=== PATIENT | female | born 1960 | race Caucasian/White ===

== ENCOUNTER 2016-08-23 08:28 | Inpatient (IN) | payer OTHER ==
[2016-08-23] VITALS (35 sets, daily range): BP systolic 111–179; BP diastolic 64–98; PULSE 72–102; RESP 16–19; Ht 149.9 cm; Wt 67.5 kg
[~2016-08-23] VITALS: Ht 149.9 cm; Wt 67.5 kg
[~2016-08-23 08:28] MED LIST: HYDR-906 PO
[2016-08-23] MEDS ORDERED: NEOSTIGMINE 3 MG/3 ML SYRINGE ONE (09:30)
[2016-08-23] MEDS ORDERED: FENTAnyl 50 MCG/ML VIAL IV PRN ×2 (09:30)
[2016-08-23] MEDS ORDERED: FENTAnyl 50 MCG/ML VIAL ONE (09:30)
[2016-08-23] MEDS ORDERED: MEPERIDINE 25 MG INJ IV PRN (09:30)
[2016-08-23] MEDS ORDERED: ATROPINE 1 MG/10 ML SYRINGE IV PRN (09:30)
[2016-08-23] MEDS ORDERED: ROCURONIUM 50 MG INJ ONE (09:30)
[2016-08-23] MEDS ORDERED: LABETALOL HCL 20MG INJ IV PRN (09:30)
[2016-08-23] MEDS ORDERED: LIDOCAINE 2% (SDV) 5 ML INJ ONE (09:30)
[2016-08-23] MEDS ORDERED: hydrALAzine 20 MG INJ IV PRN (09:30)
[2016-08-23] MEDS ORDERED: EPHEDrine SULFATE 50 MG/5 ML SYG IV PRN (09:30)
[2016-08-23] MEDS ORDERED: HYDROmorphONE (0.2 MG/ML) 10ML SYG IV PRN ×3 (09:30)
[2016-08-23] MEDS ORDERED: ONDANSETRON 4 MG INJ IV PRN ×2 (09:30→14:30)
[2016-08-23] MEDS ORDERED: OXYCODONE/ACETAMINOPHEN (5/325) TAB PO PRN ×2 (09:30)
[2016-08-23] MEDS ORDERED: morphine (1 MG/ML) 10ML SYRINGE IV PRN ×3 (09:30)
[2016-08-23] MEDS ORDERED: MIDAZOLAM 1 MG/ML 2 ML INJ IV PRN (09:30)
[2016-08-23] MEDS ORDERED: PROPOFOL 20 ML ONE (09:30)
[2016-08-23] MEDS ORDERED: DIPHENHYDRAMINE 50 MG INJ IV PRN (09:30)
[2016-08-23] MEDS ORDERED: MIDAZOLAM 1 MG/ML 2 ML INJ ONE (09:30)
[2016-08-23] MEDS ORDERED: GLYCOPYRROLATE 0.4 MG INJ ONE (09:30)
[2016-08-23] MEDS ORDERED: LIDOCAINE 2%/EPI 30 ML INJ ONE (09:31)
[2016-08-23] MEDS ORDERED: ROPIVACAINE 0.5 % 30 ML VIAL ONE (09:31)
[2016-08-23] MEDS ORDERED: metroNIDAZOLE 500 MG/NS (PMX) 100 ML IVPB ONE (09:33)
[2016-08-23] MEDS ORDERED: ALBUMIN HUMAN 25% 100 ML ONE (09:33)
[2016-08-23] MEDS ORDERED: VANCOMYCIN 1 GM (PMX) 250 ML ONE (11:17)
[2016-08-23] MEDS ORDERED: POLYMYXIN/BACITRACIN 1L IRRIG IRR ONE (11:48)
[2016-08-23] MEDS ORDERED: ONDANSETRON 4 MG INJ ONE (12:02)
[2016-08-23] MEDS ORDERED: DEXAMETHASONE 4 MG/ML 1 ML INJ ONE (12:02)
[2016-08-23] MEDS ORDERED: hydrALAzine 20 MG INJ ONE (12:53)
[2016-08-23] MEDS ORDERED: POLYMYXIN/BACITRACIN 1L IRRIG ONE (13:45)
[2016-08-23] MEDS ORDERED: NEOMYC/POLYMYX/BACIT 30 GM OINT ONE (13:45)
--- NOTE | 2016-08-23 14:15 | RADRPT ---
PROCEDURE: Intraoperative imaging of the left ankle with fluoroscopy. CLINICAL INDICATION: Left ankle pain. Intraoperative. TECHNIQUE: Four images of the left ankle were obtained in the operating room with an image intensi fier. No radiologist was in attendance. 1.5 minutes of fluoroscopy time was used. COMPARISON: Left ankle radiographs dated 07/30/2016. FINDINGS: Images demonstrate open reduction and internal fixation of the distal fibula with a lateral plate an d multiple screws. 2 screws are also noted transfixing the distal tibia and a single screw is noted transfixing the medial malleolus. IMPRESSION: 1. Intraoperative imaging of the left ankle. RPTAT: QQ .Willian Carney MD, MD Date Time Electronically viewed and signed by .Willian Carney MD, on 08/23/2016 14:15 .R/
[2016-08-23] MEDS ORDERED: morphine 1 MG/ML 30 ML (PCA) IV SCH (14:30)
[2016-08-23] MEDS ORDERED: DIPHENHYDRAMINE 25 MG CAP PO PRN (14:30)
[2016-08-23] MEDS ORDERED: morphine 10 MG INJ IV PRN (14:30)
--- NOTE | 2016-08-23 14:38 | OPPN ---
Date/Time of Note Date/Time of Note DATE: 08/23/16 TIME: 14:31 Operative/Procedure Note Pre-Operative Diagnosis 1. Left ankle trimalleolar ankle fracture 2. Diabetic skin wound over the anterior and lateral ankle measuring <25cm squared Post-Operative Diagnosis 1. Left ankle trimalleolar ankle fracture 2. Diabetic skin wound over the anterior and lateral ankle measuring <25cm squared Procedure 1. Left ankle trimalleolar ankle fracture ORIF (CPT - 33909) 2. Application of skin substitute graft to the left Diabetic skin wound over the left anterior and lateral ankle measuring 25cm squared total with Jes Allowrap DS Amniotic Membrane (CPT - 47254) 3. Application of short leg splint (CPT - 40421) 4. Use of fluoroscopy Surgeon: TARAH SWARTZ MD Manager Military: CORY BRAVO MD Anesthesiologist: BHAVYA KERNS MD Implants/Grafts [employer] distal fibular locking plate Jes 4.0 partially threaded cancellous screws with washer x 2 AO Synthes 2.0 full threaded screw Estimated blood loss: 0 - 10 ml's Drains: Not applicable Specimens: Not Applicable Complications: None Anesthesia type: nerve block TARAH SWARTZ MD Aug 23, 2016 14:38
[2016-08-23 15:54] LABS: THYROID STIMULATING HORMONE 1.44 MIU/L (0.465-4.680)
[2016-08-23] MEDS ORDERED: GLUCAGON 1 MG INJ IM PRN (17:30)
[2016-08-23] MEDS ORDERED: GLUCOSE GEL 15 GRAM TUBE BUCCAL PRN (17:30)
[2016-08-23] MEDS ORDERED: GLUCOSE GEL 15 GRAM TUBE PO PRN ×2 (17:30)
[2016-08-23] MEDS ORDERED: DEXTROSE 50% 50 ML SYRINGE IV PRN ×2 (17:30)
[2016-08-23] MEDS: INSULIN ASPART [NOVOLOG] 3 ML PEN SC SCH ×2 (17:55→20:39)
[2016-08-23] MEDS: PANTOPRAZOLE (EC) 40 MG TAB PO SCH (18:00)
--- NOTE | 2016-08-23 19:14 | CONS ---
DATE OF ADMISSION: 08/23/2016 DATE OF CONSULTATION: 08/23/2016 REQUESTING CONSULT: Tarah Swartz MD REASON FOR CONSULTATION: Medical management status post left ankle surgery. HISTORY OF PRESENT ILLNESS: This is a 55-year-old female with past medical history of left ankle tr imalleolar ankle fracture, prehypertension, prediabetes mellitus, degenerative disk disease, low rocio k pain, left bundle branch block who on 07/30/2016 slipped on ice and fractured her left ankle and w as seen and evaluated by orthopedic surgeon as outpatient. The patient today was admitted for elect kaylie left ankle trimalleolar ankle fracture ORIF. After discussing the risks and benefits of the madeleine janet and signing consent, the patient was taken to OR today and had a left ankle trimalleolar ankle fracture ORIF with application of ____ graft to the left diabetic skin wound over the left anterior and lateral ankle measuring 25 cm2 total of Jes, and application of short leg cast with nerve bl ock. The patient tolerated the procedure and was taken to recovery room, which medical team was con sulted for further evaluation and medical treatment. Postoperatively, patient was found to have tem perature 98, pulse 102, respiration rate 17, blood pressure 127/72, oxygen 98% on 2 liters via nasal cannula. The patient, at this time, is accompanied by her son and her . She denies any [address] [facility] pain, shortness of breath, nausea, vomiting, diarrhea. No headache, dizziness, lightheadedness. No change in visual acuity, diplopia, photophobia. No abdominal pain. Denies having any pain in h er extremities. The patient is on POLITICAL SCIENCE CHAIR pump. PAST MEDICAL AND SURGICAL HISTORY: As above per HPI. MEDICATIONS: According to the patient's son, patient is on OxyContin, [place], although on the list, patient is also on Maxzide 37.5/25 half a tab p.o. daily, although according to the patient's son, ismael ac has not been taking this medication. ALLERGIES: PENICILLIN, DICLOFENAC. SOCIAL HISTORY: Negative x3 for smoking, alcohol, illicit drugs. The patient lives at home with he r family. FAMILY HISTORY: Noncontributory. REVIEW OF SYSTEMS: As above per HPI, otherwise 12 review of systems was found to be negative. PHYSICAL EXAMINATION: VITAL SIGNS: Temperature at this time 98.0, pulse 96, respirations 17, blood pressure 135/74, oxyge n saturation 99% on 2 liters venous via nasal cannula. GENERAL APPEARANCE: The patient is lying in bed comfortably without any acute distress. She is macie ke, alert, able to follow simple commands. EYES AND EARS, NOSE, THROAT: Conjunctivae and lids are normal. Pupils are normal. Extraocular mov ements normal. Hearing grossly normal. Lips are normal. Oral mucosa is dry. NECK: Supple. Trachea is midline. No lymphadenopathy. RESPIRATORY: Effort is normal. Clear to auscultation bilaterally. CARDIOVASCULAR: Normal S1, S2. Regular rhythm and rate. No murmur, no bruits, no edema. Peripher al pulses, radial pulses palpable. Cap refill is normal. CHEST: Normal expansion of thorax during inspiration. GASTROINTESTINAL: Abdomen is soft, nontender, nondistended. Bowel sounds present. No guarding, no rebound. GENITOURINARY: Deferred. MUSCULOSKELETAL: Upper extremity within normal limits. Right lower extremity within normal limits. Left lower extremity, status post left ankle ORIF in cast. No cyanosis in the digits of the left foot. NEUROLOGIC: She is awake, alert. LABORATORY WORK AND IMAGING: TSH 1.440, free T4 of 2.02. Thyroxine 13.7. On 08/10/2016, WBC 8.4, hemoglobin 13.4, hematocrit 39.2, platelets 406. Glucose 100, BUN 14, creatinine 0.69, GFR ____, so dium 139, potassium 4.2, chloride 100, bicarbonate 25, calcium 8.9, albumin 3.9. Urinalysis negativ e. INR 1.0, PTT 26. ASSESSMENT AND PLAN: 1. Left ankle trimalleolar ankle fracture. The patient is status post left ankle trimalleolar ankl e fracture open reduction internal fixation. Orthopedic surgeon, Dr. Swartz. Continue post-surgica l care. Continue with POLITICAL SCIENCE CHAIR for the next 24 hours and then we will transition to oral pain medication . Physical therapy as per his recommendation. 2. Diabetic skin wound over the anterior and lateral ankle measuring less than 25 cm, status post a pplication of ____ graft to the left diabetic skin wound over the left anterior and lateral ankle me asuring 25 cm. Continue wound care. 3. Prediabetic. The patient has been placed on insulin sliding scale. Follow up hemoglobin A1c. 4. Prehypertension. The patient has been started on metoprolol. Continue to monitor blood pressur e and treat accordingly. 5. For gastrointestinal prophylaxis, we will place the patient on Protonix. 6. Deep venous thrombosis prophylaxis. We will follow up orthopedic surgeon recommendation. Total amount of time was spent for evaluation of patient and consultation note 40 minutes. We will continue to monitor patient closely. Further recommendations, management, and treatment as per clin ical course. Dictated By: CARA ANDRE MD PN/NTS Conf#: [id number] DID#: [id number] CC: TARAH SWARTZ MD;*EndCC*
[2016-08-23] MEDS ORDERED: VANCOMYCIN IV PER PHARMACY XX SCH ×2 (19:30→21:00)
[2016-08-23] MEDS: VANCOMYCIN 1 GM in NS 250 ML IVPB SCH (20:38)
[2016-08-23] MEDS: METOPROLOL 25 MG TAB PO SCH (20:38)
[2016-08-24] MEDS ORDERED: ACCUCHECK XX SCH (02:00)
[2016-08-24 05:24] LABS: BASOPHIL # 0.1 10^3/ul (0.0-0.1); BASOPHILS % 0.6 % (0.0-2.0); HEMATOCRIT 40.2 % (37.0-47.0); HEMOGLOBIN 13.7 g/dl (12.0-16.0); LYMPHOCYTES # 0.8 10^3/ul (0.8-2.9); LYMPHOCYTES % 6.5 % (15.0-51.0); MEAN CORPUSCULAR HEMOGLOBIN 31.2 pg (29.0-33.0); MEAN CORPUSCULAR HGB CONC 34.1 g/dl (32.0-37.0); MEAN CORPUSCULAR VOLUME 91.4 fl (82.0-101.0); MEAN PLATELET VOLUME 8.7 fl (7.4-10.4); MONOCYTE # 0.5 10^3/ul (0.3-0.9); MONOCYTES % 4.1 % (0.0-11.0); NEUTROPHIL # 11.6 10^3/ul (1.6-7.5); NEUTROPHILS % 88.8 % (39.0-77.0); PLATELET COUNT 326 10^3/UL (140-440); RED BLOOD COUNT 4.39 10^6/ul (4.20-5.40); UNCORRECTED WBC 13.1 10^3/ul (4.8-10.8); WHITE BLOOD COUNT 13.1 10^3/ul (4.8-10.8)
[2016-08-24 05:38] LABS: CONDITION 1
[2016-08-24 05:45] LABS: CHOL/HDL RATIO 3.5 RATIO
[2016-08-24 05:48] LABS: POTASSIUM 3.5 mmol/L (3.5-5.1)
[2016-08-24 05:50] LABS: CREATININE 0.67 mg/dl (0.44-1.00)
[2016-08-24] MEDS: PANTOPRAZOLE (EC) 40 MG TAB PO SCH (06:08)
--- NOTE | 2016-08-24 07:41 | DS ---
Date/Time of Note Date/Time of Note DATE: 08/24/16 TIME: 07:41 Discharge Summary Admission/Discharge Info Admit Date/Time Aug 23, 2016 at 08:28 Discharge Date/Time 08/24/16 Final Diagnosis Left ankle trimalleolar ankle fracture left Diabetic skin wound over the left anterior and lateral ankle measuring 25cm squared total Patient Condition: Good Consults medicine Procedures 1. Left ankle trimalleolar ankle fracture ORIF (CPT - 91106) 2. Application of skin substitute graft to the left Diabetic skin wound over the left anterior and lateral ankle measuring 25cm squared total with Jes Allowrap DS Amniotic Membrane (CPT - 96142) 3. Application of short leg splint (CPT - 34511) 4. Use of fluoroscopy Hospital Course Patient had pain well controlled and was NVI on discharge day. Up with PT Home Meds Discontinued Scripts Hydrocodone/Acetaminophen ([place] 5-325 Tablet) 1 Each Tablet, 1 TAB PO Q6H Y for PAIN, #10 TAB Prov:SHANNON MEDRANO NP 07/30/16 Follow-up Plan with Dr. Swartz in 1 week Pending Labs Laboratory Tests Test 08/23/16 15:00 08/23/16 18:54 08/23/16 20:37 08/24/16 04:20 Free Thyroxine 2.02ng/dl (0.64-1.79) Thyroid Stimulating Hormone (TSH) 1.440MIU/L (0.465-4.680) Thyroxine (T4) 13.7ug/dl (5.5-11.0) Bedside Glucose 139mg/dL (70-220) 167mg/dL (70-220) Anion Gap 17 (8-16) Basophils # 0.110^3/ul (0.0-0.1) Basophils % 0.6% (0.0-2.0) Blood Urea Nitrogen 15mg/dl (7-20) Calcium Level 9.0mg/dl (8.4-10.2) Carbon Dioxide Level 23mmol/L (21-31) Chloride Level 106mmol/L (97-110) Cholesterol Level 162mg/dl (100-200) Cholesterol/HDL Ratio 3.5RATIO Creatinine 0.67mg/dl (0.44-1.00) Eosinophils # 0.010^3/ul (0.0-0.5) Eosinophils % 0.0% (0.0-7.0) Glucose Level 133mg/dl (70-220) HDL Cholesterol 46mg/dl (37-92) Hematocrit 40.2% (37.0-47.0) Hemoglobin 13.7g/dl (12.0-16.0) Hemoglobin A1c 5.3% (0-5.9) LDL Cholesterol, Calculated 104mg/dl Lymphocytes # 0.810^3/ul (0.8-2.9) Lymphocytes % 6.5% (15.0-51.0) Mean Corpuscular Hemoglobin 31.2pg (29.0-33.0) Mean Corpuscular Hemoglobin Concent 34.1g/dl (32.0-37.0) Mean Corpuscular Volume 91.4fl (82.0-101.0) Mean Platelet Volume 8.7fl (7.4-10.4) Monocytes # 0.510^3/ul (0.3-0.9) Monocytes % 4.1% (0.0-11.0) Neutrophils # 11.610^3/ul (1.6-7.5) Neutrophils % 88.8% (39.0-77.0) Nucleated Red Blood Cells # 0.010^3/ul (0.0-0.0) Nucleated Red Blood Cells % 0.0/100WBC (0.0-0.0) Platelet Count 22685^3/UL (140-440) Potassium Level 3.5mmol/L (3.5-5.1) Red Blood Count 4.3910^6/ul (4.20-5.40) Red Cell Distribution Width 13.0% (11.5-14.5) Sodium Level 142mmol/L (135-144) Triglycerides Level 61mg/dl (0-149) White Blood Count 13.110^3/ul (4.8-10.8) TARAH SWARTZ MD Aug 24, 2016 07:41
--- NOTE | 2016-08-24 07:41 | PN ---
Date/Time of Note Date/Time of Note DATE: 08/24/16 TIME: 07:41 Assessment/Plan Lines/Catheters IV Catheter Type (from Nrsg): Peripheral IV Delcid in Place (from Nrsg): No Assessment/Plan Assessment/Plan POD#1 s/p 1. Left ankle trimalleolar ankle fracture ORIF (CPT - 80705) 2. Application of skin substitute graft to the left Diabetic skin wound over the left anterior and lateral ankle measuring 25cm squared total with [place] Allowrap DS Amniotic Membrane (CPT - 62219) - NWB to the LLE - Appreciate Primary med recs - xarelto, scds, teds - po pain meds - dc home today E Teresa BETANCOURT Subjective 24 Hr Interval Summary Doing well. Pain is well controlled. No f/c/n/v Constitutional: improved, no complaints Feeding: advancing diet Pain Control: well controlled Exam/Review of Systems Vital Signs Vitals Vital Signs Date Time Temp Pulse Resp B/P Pulse Ox O2 Delivery O2 Flow Rate FiO2 08/24/16 08:38 16 08/24/16 08:22 97.8 80 133/72 97 08/23/16 21:05 Nasal Cannula 2.0 Intake and Output 08/23/16 08/23/16 08/24/16 15:00 23:00 07:00 Intake Total 1300 ml 950 ml Output Total 50 ml 1100 ml Balance 1250 ml -150 ml Exam Constitutional: alert, oriented, well developed Musculoskeletal: other (LLE/ toes wiggle, silt exposed toes, cr brisk) Results Result Diagram: 08/24/16 0420 08/24/16419 TARAH SWARTZ MD Aug 24, 2016 07:41
[2016-08-24] MEDS: INSULIN ASPART [NOVOLOG] 3 ML PEN SC SCH ×2 (07:50→11:40)
--- NOTE | 2016-08-24 08:00 | PDOCDIS ---
Discharge Instructions CONDITION Patient Condition: Good HOME CARE INSTRUCTIONS: Diet Instructions: Regular ACTIVITY: Activity Restrictions: Avoid heavy lifting Do not Drive No Weight Bearing (to operative extremity) TARAH SWARTZ MD Aug 24, 2016 08:00
[2016-08-24] MEDS ORDERED: RIVA10TA PO (08:01)
[2016-08-24 08:22] VITALS: BP 133/72; RESP 20
[2016-08-24] MEDS: VANCOMYCIN 1 GM in NS 250 ML IVPB SCH (08:35)
[2016-08-24] MEDS: METOPROLOL 25 MG TAB PO SCH (08:36)
[2016-08-24] MEDS: OXYCODONE/ACETAMINOPHEN (5/325) TAB PO PRN ×2 (08:36→15:49)
[2016-08-24] MEDS ORDERED: TRIAMTERENE/HCTZ (37.5-25) CAP PO SCH (09:00)
[2016-08-24] MEDS ORDERED: PANT40TA4 PO (11:05)
--- NOTE | 2016-08-24 11:26 | PN ---
Date/Time of Note Date/Time of Note DATE: 08/24/16 TIME: 11:17 Assessment/Plan VTE Prophylaxis VTE Prophylaxis Intervention: other Lines/Catheters IV Catheter Type (from Nrs): Peripheral IV Urinary Cath still in place: No Assessment/Plan Chief Complaint/Hosp Course ASSESSMENT AND PLAN: 1. Left ankle trimalleolar ankle fracture. status post left ankle trimalleolar ankle fracture open reduction internal fixation. Orthopedic surgeon, Dr. Moore. Physical therapy eval and treat. Continue pain medication , Xarelto 2. Diabetic skin wound over the anterior and lateral ankle measuring less than 25 cm, status post application of graft to the left diabetic skin wound over the left anterior and lateral ankle measuring 25 cm. Continue wound care. 3. Prediabetic. Encourage low-carb diet 4. Essential hypertension. The patient has been started on metoprolol. 5. For gastrointestinal prophylaxis, discharged on omeprazole Patient is medically stable for discharge with a close follow-up with orthopedic surgeon as outpatient Problems: Subjective 24 Hr Interval Summary Free Text/Dictation Patient denies any chest pain or shortness of breath Denies of any calf pain Tolerating oral intake Minimal pain Exam/Review of Systems Vital Signs Vitals Vital Signs Date Time Temp Pulse Resp B/P Pulse Ox O2 Delivery O2 Flow Rate FiO2 08/24/16 08:38 16 08/24/16 08:22 97.8 80 133/72 97 08/23/16 21:05 Nasal Cannula 2.0 Intake and Output 08/23/16 08/23/16 08/24/16 15:00 23:00 07:00 Intake Total 1300 ml 950 ml Output Total 50 ml 1100 ml Balance 1250 ml -150 ml Exam General: The patient is well-developed, Not in acute distress. HEENT: Atraumatic, normocephalic. The pupils are equal and round . Neck: Supple with full range of motion. Chest: Normal expansion of the thorax during inspiration Lungs: Clear to auscultation bilaterally Heart: Normal S1-S2, Regular rhythm and rate. Abdomen: Soft , nontender, nondistended , bowel sounds are present. Extremities: Normal to inspection, no edema no cyanosis, left lower extremity/ ankle in cast Neurologic: Normal mental status,The patient is awake, alert and oriented . Results Result Diagram: 08/24/1641908/24/16419 Results 24 hrs Laboratory Tests Test 08/23/16 15:00 08/23/16 18:54 08/23/16 20:37 08/24/16 04:20 Free Thyroxine 2.02 H Thyroid Stimulating Hormone (TSH) 1.440 Thyroxine (T4) 13.7 H Bedside Glucose 139 167 Anion Gap 17 H Basophils # 0.1 Basophils % 0.6 Blood Urea Nitrogen 15 Calcium Level 9.0 Carbon Dioxide Level 23 Chloride Level 106 Cholesterol Level 162 Cholesterol/HDL Ratio 3.5 Creatinine 0.67 Eosinophils # 0.0 Eosinophils % 0.0 Glucose Level 133 HDL Cholesterol 46 Hematocrit 40.2 Hemoglobin 13.7 Hemoglobin A1c 5.3 LDL Cholesterol, Calculated 104 Lymphocytes # 0.8 Lymphocytes % 6.5 L Mean Corpuscular Hemoglobin 31.2 Mean Corpuscular Hemoglobin Concent 34.1 Mean Corpuscular Volume 91.4 Mean Platelet Volume 8.7 Monocytes # 0.5 Monocytes % 4.1 Neutrophils # 11.6 H Neutrophils % 88.8 H Nucleated Red Blood Cells # 0.0 Nucleated Red Blood Cells % 0.0 Platelet Count 326 Potassium Level 3.5 Red Blood Count 4.39 Red Cell Distribution Width 13.0 Sodium Level 142 Triglycerides Level 61 White Blood Count 13.1 H Test 08/24/16 08:34 Bedside Glucose 134 Medications Medications Current Medications Oxycodone/ Acetaminophen (Percocet (5/ 325)) 2 tab Q4H PRN PO PAIN Last administered on 08/24/16t 08:36; Admin Dose 2 TAB; Start 08/23/16 at 14:30 Morphine Sulfate (morphine) 5 mg Q4H PRN IV PAIN LEVEL 7-10; Start 08/23/16 at 14:30 Ondansetron HCl (Zofran Inj) 4 mg Q4H PRN IV NAUSEA AND/OR VOMITING; Start at 14:30 Diphenhydramine HCl (Benadryl) 25 mg Q4H PRN PO ITCHING; Start 08/23/16 at 14: 30 Diagnostic Test (Pha) (Accucheck) 1 ea 02 XX ; Start 08/24/16 at 02:00 Miscellaneous Information 1 ea NOTE XX ; Start 08/23/16 at 17:30 Glucose (Glutose) 15 gm Q15M PRN PO DECREASED GLUCOSE; Start 08/23/16 at 17:30 Glucose (Glutose) 22.5 gm Q15M PRN PO DECREASED GLUCOSE; Start 08/23/16 at 17: 30 Dextrose (D50w Syringe) 25 ml Q15M PRN IV DECREASED GLUCOSE; Start 08/23/16 at 17:30 Dextrose (D50w Syringe) 50 ml Q15M PRN IV DECREASED GLUCOSE; Start 08/23/16 at 17:30 Glucagon (Glucagen) 1 mg Q15M PRN IM DECREASED GLUCOSE; Start 08/23/16 at 17:30 Glucose (Glutose) 15 gm Q15M PRN BUCCAL DECREASED GLUCOSE; Start 08/23/16 at 17 :30 Metoprolol Tartrate (Lopressor) 25 mg BID PO Last administered on 08/24/16 08: 36; Admin Dose 25 MG; Start 08/23/16 at 18:00 Pantoprazole (Protonix Tab) 40 mg DAILY@06 PO Last administered on 08/24/16 06 :08; Admin Dose 40 MG; Start 08/23/16 at 18:00 Vancomycin HCl (Vanco Iv Per Pharmacy) PER PHARMACY DOSING NOTE XX ; Start 08/23 at 19:30 CARA ANDRE MD Aug 24, 2016 11:26
--- NOTE | 2016-08-24 14:26 | OPR ---
DATE OF OPERATION: 08/23/2016 PREOPERATIVE DIAGNOSIS: 1. Left ankle trimalleolar ankle fracture. 2. Diabetic skin wound over the anterior and lateral ankle measuring less than 25 cm squared. POSTOPERATIVE DIAGNOSES 1. Left ankle trimalleolar ankle fracture. 2. Diabetic skin wound over the anterior and lateral ankle measuring less than 25 cm squared PROCEDURE: 1. Left ankle trimalleolar ankle fracture open reduction internal fixation. CPT code 43899. 2. Application of skin substitute graft to the left diabetic skin wound over left anterior and lateral ankle measuring less than 25cm squared total with [place] AlloWrap DS amniotic membrane (CPT code - 97439). 3. Application of short leg splint, CPT code 36866. 4. Use of fluoroscopy. SURGEON: Tarah Moore MD TOXICOLOGIST: Andrzej Mckeon MD ANESTHESIOLOGIST: Ivan Lafleur MD IMPLANTS: 1. Jes distal fibular locking plate. 2. Jes 4.0 partially-threaded cancellous screws with washers x2. 3. AO Synthes 2.0 fully-threaded screw. ESTIMATED BLOOD LOSS: Minimal. DRAINS: None. SPECIMENS: None. COMPLICATIONS: None. TOURNIQUET TIME: 110 minutes at 250 mmHg. INDICATIONS: The patient sustained a trimalleolar ankle fracture approximately 3 weeks prior to surgery and we waited for her swelling to come down prior to surgery. The patient was preoperatively cleared by her primary doctor and indicated for surgery after review of CT and x-rays. RISK NOTE: The patient was explained the risks and benefits of the surgery in the patient's [place] language including, but not limited to infection, bleeding , loss of limb, loss of life, need for future surgery, risk of infection, risk of injury to blood vessels, nerves, ligaments or tendons. The patient acknowledged these risks, by signing the surgical consent form. PROCEDURE NOTE: The patient had the correct operative extremity marked in the preoperative holding area. The patient was then brought back in the operative theater, given preoperative antibiotics and preoperative regional block anesthesia. The patient was then prepped and draped in a normal sterile fashion. Timeout was taken and all parties in the room agreed it was the correct extremity, correct patient, correct procedure. Incision was initially made over the distal fibula and the distal fibula was meticulously reduced and repaired initially with a lag screw obtaining interfragmentary compression followed by a [place] distal fibular plate placed over the fracture. Length, alignment and rotation were then shown to be well achieved on both AP, lateral and oblique x-ray fluoroscopy. Once this was achieved, attention was then turned over to the posterior malleolus and the posterior malleolus fracture had shown to be well reduced with improvement in length. At this point, 2 anterior to posterior screws were placed over the anterior tibia angled posterolaterally. They were 4.0 partially-threaded cancellous screws with washers, in order to obtain interfragmentary compression of the posterior malleolus fracture fragment and meticulous neurovascular avoidance was performed in order to place these screws. Attention was then turned over to the medial malleolus and even noted a small anterior colliculus medial malleolus piece. Meticulous incision was performed in order to reduce the fracture fragment. Using a 2.0 screw, the fracture was reduced using lag compression. All fracture fragments were extremely well reduced in both AP, lateral and oblique planes. All wounds were irrigated thoroughly and closed with 2-0 Vicryl, 3-0 Monocryl and 4-0 nylon in a vertical mattress fashion. All sponge and needle counts were correct. The patient wounds were dressed with Xeroform, 4 x 4s, 5 ABDs and placed in a well-padded short leg splint. TOXICOLOGIST NOTE: An assistant administrator was required for this case, that was an orthopedic surgeon in order to assist in reduction, manipulation of the limb and retraction. Without a qualified orthopedic director medical surgical, the case would have been much longer and much more complex, thus, should be compensated accordingly. Dictated By: TARAH KEMP/DUDLEY Conf#: [id number] DID#: [id number]
[2016-08-24] MEDS ORDERED: RIVAROXABAN 10 MG TABLET PO SCH (17:55)
== END 2016-08-24 17:00 | disposition home or self-care (01) | DRG 494 ==
LOC: REC 08:28 → MS1 16:30
PROVIDERS: ADMIT Orthopaedic Surgery; ATTEND Orthopaedic Surgery
PROC: 0YU Anatomical Regions, Lower Extremities, Supplement (ICD-10-PCS; 2016-08-23)
PROC: 0QSK04Z Reposition Left Fibula with Internal Fixation Device, Open Approach (ICD-10-PCS; principal; 2016-08-23 10:30)
DX: S82.852A Displaced trimalleolar fracture of left lower leg, initial encounter for closed fracture (principal); E11.628 Type 2 diabetes mellitus with other skin complications; W00.0XXA Fall on same level due to ice and snow, initial encounter; Y93.9 Activity, unspecified; Y92.9 Unspecified place or not applicable; I10 Essential (primary) hypertension
CPT/HCPCS: 73610; 80048; 80061; 82306; 82962; 83036; 84436; 84439; 84443; 85025; 97116; 97163; 97530; C1713; J0360; J1100; J1815; J2250; J2270; J2405; J2710; J2795; J3010; J3370; P9047